=== PATIENT | male | born 1955 | race Caucasian/White ===

== ENCOUNTER 2019-05-13 16:52 | Inpatient (IN) ==
[2019-05-13] MEDS ORDERED: TESSALON PO ONE (17:51)
--- NOTE | 2019-05-13 17:59 | PROVIDER DOCUMENTATION ---
HPI-General Adult - General Chief Complaint: Cough Stated Complaint: COUGH / CONGESTION Time Seen by Provider: 05/13/19 17:13 Source: patient Allergies/Adverse Reactions: Patient Allergies Allergy/AdvReac Type Severity Reaction Status Date / Time Penicillins AdvReac HIVES Verified 05/13/19 17:03 Home Medications: Home Medication List Medication Instructions Recorded Confirmed Last Taken Type NK [No Home Medications] 05/13/19 05/13/19 Unknown History - History of Present Illness -Gen Adult Nature of Presenting Problems: Patient is a 63yo M who presents with complaints of intermittently productive/dry cough, nasal congestion, postnasal drip, and R ear pain x2 weeks. States he saw his PCP last week and was diagnosed with a Sinus Infection. Reports he completed a course of Azithromycin, steroids, and cough medication without improvement. States he has also been wheezing some at night. Denies fever, sore throat, n/v/d, CP, or SOB. Non-toxic in appearance. Location of Pain/Injury: reports: head, face Pain Radiation: reports: no radiation Quality of Pain: reports: aching Severity: reports: mild Onset/Duration: reports: other (2 weeks ago) Timing: reports: still present Context/Activities at Onset: reports: none Modifying Factors: improves with: nothing Associated Symptoms: reports: cough, EENT symptoms, sinus congestion/drainage. denies: back/neck pain, fever/chills, headaches, nausea, shortness of breath, weakness Similar Symptoms Previously?: Yes Recently seen or treated by another doctor?: Yes (saw PCP 1 week ago) Review of Systems - Adult - REVIEW OF SYSTEMS - ADULT Constitutional: reports: no symptoms reported. denies: chills, fever Eyes: reports: no symptoms reported Ears, Nose, Mouth & Throat: reports: see HPI, ear pain, sinus problem. denies: throat pain Cardiovascular: reports: no symptoms reported. denies: chest pain, palpitations Respiratory: reports: see HPI, cough, wheezing. denies: dyspnea on exertion, shortness of breath Gastrointestinal: reports: no symptoms reported. denies: abdominal pain, nausea, vomiting Genitourinary: reports: no symptoms reported Musculoskeletal: reports: no symptoms reported Integumentary: reports: no symptoms reported Neurological: reports: no symptoms reported Psychiatric: reports: no symptoms reported Endocrine: reports: no symptoms reported Past History - Adult - PAST MEDICAL HISTORY-ADULT Review of Records: reports: Nursing Assessment Review, Medications Reviewed - IMMUNIZATION STATUS Childhood Immunizations: See Nurse Assessment Flu Vaccine: See Nurse Assessment - FAMILY HISTORY Family History: reviewed, not pertinent - SOCIAL HISTORY Smoking: quit greater than 1 year Physical Exam-General - PHYSICAL EXAM-ADULT Initial Vital Signs Reviewed: Yes - CONSTITUTIONAL General Appearance: appears well, alert, no apparent distress. negative: lethargic, slow to respond, obtunded - EYES Eyes: PERRL/EOMI, pink conjunctivae. negative: EOM palsy, scleral icterus - HEAD, EARS, NOSE, MOUTH & THROAT HENMT: normocephalic/atraumatic, moist mucous membranes, pharynx normal, other (cerumen R ear canal; nasal congestion) - NECK Neck: full range of motion, supple, normal inspection - RESPIRATORY Respiratory: chest non-tender, lungs clear, normal breath sounds, no pleuratic chest pain, no respiratory distress, no accessory muscle use. negative: crackles, rales, rhonchi, stridor, wheezing, retractions, splinting - CARDIOVASCULAR Cardiovascular: regular rate, rhythm - MUSCULOSKELETAL Back Exam: normal inspection Extremity: normal range of motion, normal gait, normal inspection - SKIN Integumentary: normal color, warm/dry. negative: cyanosis, jaundice, pallor - NEUROLOGIC Neurologic: grossly normal. negative: abnormal gait, aphasia, EOM palsy - PSYCHIATRIC Psych/Mental Status: normal mood/affect, normal thought content, normal thought process, oriented x 3 Progress - PLAN OF CARE/RESULTS Progress/Plan/Lab Results: Vital Signs - 8 hr 05/13/19 16:58 Temperature 98 F Pulse Rate 99 H Respiratory Rate 18 Blood Pressure 128/80 O2 Sat by Pulse Oximetry 94 L Orders Category Date Time Status CHEST-2 VIEWS [RAD] Stat Exams 05/13/19 17:05 Taken BASIC METABOLIC PANEL [CHEM] Stat Lab 05/13/19 17:33 Ordered CBC WITH ELECTRONIC DIFF [HEME] Stat Lab 05/13/19 17:[address] Stat Lab 05/13/19 17:33 Ordered Benzonatate [Tessalon] Med 05/13/19 17:51 Discontinued 100 mg PO NOW ONE 1840: Ludy from lab reports critical blood glucose of 502. Patient notified and reports no known hx of DM or family hx. Will order workup for DKA. Lab results, imaging results, plan of care, and need for admission discussed with patient who agrees with and verbalizes understanding. Result Diagrams: 05/13/19 17:41 05/13/19 17:41 - REASSESSMENT Reassessment #1 Time Reassessed: 17:30 Status: improving Reassessment #2 Time Reassessed: 19:01 Status: improving Reassessment Comment: BG decreased to 354 Reassessment #3 Time Reassessed: 20:00 Status: improving Reassessment Comment: BG decreased to 275 - XRAY 1 XRAY: Bilateral XRAY Study: Chest Impression: See EMR Report ([facility] - [address] [facility], [address] [address] [facility] - [address] [place] [address] Department of Imaging Patient: KATHARINA MCGRATH AADM Date: 05/13/19MR#: [id number] : 1955DM Status: REG [facility]#: [id number] Age/Sex: 63/MRoom/Bed: Loc: .ED Ordering Physician: Alejo Jackson MD Family Physician: Isaiah Cespedes MD Reason for Procedure: cough wheezing x 2 weeks ___ Signed EXAM: CHEST-2 VIEWS INDICATION: cough wheezing x 2 weeks TECHNIQUE: 2 views COMPARISON: None. FINDINGS: The lungs are grossly clear. There is no discrete pleural fluid collection or pneumothorax. The cardiomediastinal silhouette and central vasculature are grossly unremarkable. IMPRESSION: No evidence of acute pathology by plain radiograph. Electronically signed by Rodolfo Crawley 05/13/2019 7:01 PM 05/13/191900 Interpreting Physician: Rodolfo Crawley MD Dictated Date/Time: 05/13/191900 cc: Alejo Jackson MD; Isaiah Cespedes MD) - CONSULTS/PCP/HOSPITALIST Notification #1 *Consult/PCP/Hospitalist*: Farideh Galvez Time Discussed: 20:54 Reason/Comments: New onset DM; Influenza; wheezing Consult Disposition: Admit Departure - Departure Date of Disposition Decision: 05/13/19 Time of Disposition Decision: 20:54 DIAGNOSIS: Elevated blood sugar, Diabetes mellitus, new onset, Influenza A, Wheezing Disposition: ADMITTED INPATIENT 09 Certified Medical Emergency: Emergent Condition: Stable - Critical Care Note This patient required my direct & personal management of CC.: No Attestation - Physician/ ROBERT Attestation Patient care was provided by Advanced Practice Provider:: Yes Advanced Practice Provider:: Delia Winkler Advanced Practice Provider documentation review:: The Mid-level provider documentation, treatment plan and medical decision making was reviewed by the physician who agrees with all treatment and medical decision making by the MLP. The physician spent face to face time with patient:: No Advanced Practice Provider documentation review:: Supervising physician onsite and consulted in the evaluation and care of this patient. The physician did not have a face to face encounter with the patient.
[2019-05-13 18:24] LABS: BASO# 0.02 X1000 (0.0-0.2); BASO% 0.4 % (0.0-0.8); EOS# 0.02 X1000 (0.0-0.7); EOS% 0.4 % (0.0-10.0); HEMATOCRIT 47.7 % (42.0-52.0); HEMOGLOBIN 15.6 g/dL (14.0-18.0); IMM GRAN# 0.01 X1000 (0.0-0.04); IMM GRAN% 0.2 % (0.0-0.5); LYMPH# 2.08 X1000 (1.2-3.4); LYMPH% 45.6 % (20.5-51.1); MCHC 32.7 g/dL (33-37); MCV 91.7 FL (81-99); MONO# 0.57 X1000 (0.11-0.59); MONO% 12.5 % (1.7-9.3); MPV 10.7 FL (7.4-10.4); NEUT# 1.86 X1000 (1.4-6.5); NEUT% 40.9 % (42.2-75.2); PLT 186 X1000 (130-400); RDW 12.1 % (11.5-14.5); WBC 4.56 X1000 (4.8-10.8)
[2019-05-13 18:28] LABS: ESTIMATED GFR > 60
[2019-05-13 18:34] LABS: AGAP 16; BUN 14 mg/dL (8-22); CALCIUM 10.1 mg/dL (8.8-10.2); CHLORIDE 96 mmol/L (98-107); COSMO 291; CREATININE 0.9 mg/dL (0.7-1.2); SODIUM 134 mmol/L (136-145); TCO2 22 mmol/L (25-35)
[2019-05-13 18:35] LABS: GLUCOSE 502 mg/dL (70-104)
[2019-05-13] MEDS ORDERED: NS 1,000 ML IV ONE ×2 (18:46→20:59)
[2019-05-13] MEDS ORDERED: HUMULIN R (PARKWAY) SUBQ ONE ×3 (18:47→21:02)
[2019-05-13 18:50] LABS: INFLUENZA A POSITIVE (NEGATIVE); INFLUENZA B NEGATIVE (NEGATIVE)
[2019-05-13] MEDS ORDERED: HUMULIN R (PARKWAY) ONE (19:03)
--- NOTE | 2019-05-13 19:03 | Diag Imaging Result Doc PS360 ---
EXAM: CHEST-2 VIEWS INDICATION: cough wheezing x 2 weeks TECHNIQUE: 2 views COMPARISON: None. FINDINGS: The lungs are grossly clear. There is no discrete pleural fluid collection or pneumothorax. The cardiomediastinal silhouette and central vasculature are grossly unremarkable. IMPRESSION: No evidence of acute pathology by plain radiograph. Electronically signed by Rodolfo Crawley 05/13/2019 7:01 PM
[2019-05-13 19:10] LABS: BE 1.9 mmoll (-3.0-3.0); BLOOD TYPE ARTERIAL; HCO3-(ACT) 26.2 mmoll (20.0-26.0); METHB 1.2 % (0.0-1.5); O2(CT) 21.6 mL/dL (15.0-23.0); O2HB 91.3 % (95.0-99.0); PCO2(98.6) 37 mmHg (35-45); PO2(98.6) 61 mmHg (60-100); SAMPLE BLOOD; SAO2 94.5 % (95.0-100.0); THB 16.9 g/dL (11.5-17.4); pH(98.6) 7.45 (7.35-7.45)
[2019-05-13 19:12] LABS: ALLEN TEST NO; MODALITY ROOM AIR
[2019-05-13 19:35] LABS: HEMOGLOBIN A1C 11.2 % (4.8-6.0)
[2019-05-13] MEDS ORDERED: MUCINEX DM PO ONE (20:47)
[2019-05-13] MEDS ORDERED: DUONEB (A & A) INH ONE (20:47)
[2019-05-13] MEDS ORDERED: TAMIFLU PO ONE (20:47)
[2019-05-13 21:09] LABS: URINE SOURCE CLEAN CATCH
[2019-05-13 21:10] LABS: BILIRUBIN URINE NEGATIVE (NEGATIVE); BLOOD URINE NEGATIVE (NEGATIVE); COLOR YELLOW; GLUCOSE URINE >1000 mg/dL (NEGATIVE); KETONE URINE NEGATIVE (NEGATIVE); LEUKOCYTES URINE NEGATIVE (NEGATIVE); NITRITE URINE NEGATIVE (NEGATIVE); PROTEIN URINE NEGATIVE (NEGATIVE); SP GRAVITY URINE 1.037; TURBIDITY URINE CLEAR (CLEAR); UROBILINOGEN URINE NORMAL (NORMAL)
[2019-05-13 21:12] LABS: UR EPITHELIAL CELLS <10 /HPF (<10); URINE BACTERIA NEGATIVE /HPF; URINE RBC <10 /HPF (<10); URINE WBC <10 /HPF (<10)
[2019-05-13] MEDS ORDERED: LEVAQUIN 750 MG in NS 150 ML IV SCH (21:15)
[2019-05-14] MEDS: DUONEB (A & A) INH SCH ×5 (00:03→14:37)
[2019-05-14] MEDS ORDERED: LEVAQUIN 750 MG/D5W 750 MG/150 ML IVPB IV ONE (01:44)
[2019-05-14 06:25] LABS: AGAP 13; BUN 12 mg/dL (8-22); CHLORIDE 103 mmol/L (98-107); COSMO 285; CREATININE 0.8 mg/dL (0.7-1.2); ESTIMATED GFR > 60; GLUCOSE 208 mg/dL (70-104); POTASSIUM 3.8 mmol/L (3.5-5.1); SODIUM 140 mmol/L (136-145); TCO2 23 mmol/L (25-35)
[2019-05-14] MEDS ORDERED: GLUCOPHAGE PO SCH (09:00)
[2019-05-14] MEDS ORDERED: TAMIFLU PO SCH (09:00)
--- NOTE | 2019-05-14 14:49 | DISCHARGE SUMMARY ---
ADMISSION DATE: 05/13/2019 DISCHARGE DATE: ADMISSION DIAGNOSES: 1. New onset diabetes. 2. Influenza A positive. DISCHARGE DIAGNOSES: 1. New onset diabetes. 2. Influenza A positive. SUMMARY OF FINDINGS: This is a 63-year-old male who presented to [facility] ER with complaints of an intermittent dry cough with a postnasal drip, congestion and right ear pain for 2 weeks but he saw his primary care physician last week and was diagnosed with a sinus infection took a course of azithromycin, steroids and cough medication without much improvement, tested positive for influenza A, was also found to have an elevated blood sugar of 502 on arrival with a hemoglobin A1c of 11.2 so he currently has new onset diabetes type 2, was placed on pattern blood sugars with sliding scale insulin, placed on Tamiflu. Blood sugars have come down today to 208 and is feeling a little bit better today and it is felt that he can safely be discharged home. DISCHARGE MEDICATIONS: Will include a prescription for metformin 500 mg p.o. b.i.d. #60 with 1 refill and Tamiflu 75 mg p.o. b.i.d. #8 with no refills. FOLLOWUP: He will follow with his primary care physician in 1 to 2 weeks and call his office for an appointment. All discharge instructions have been reviewed and he verbalized understanding. TIME SPENT: 35 minutes. Dictated by KLAUS Marlow for Seven Green MD cc: MD Seven Plummer MD
[2019-05-14 16:09] VITALS: BP 124/78
--- NOTE | 2019-05-14 20:18 | HISTORY AND PHYSICAL ---
ADDENDUM: Patient seen and examined by myself. Full note dictated and discussed with nurse practitioner. The patient presented to the hospital with increased cough and congestion for the past 2 weeks, increased shortness of breath. We are going to admit him to the hospital, treat him for influenza, his wheezing, follow his blood sugars. Further orders as needed. cc: Seven Green MD
[2019-05-15] MEDS ORDERED: LEVAQUIN 750 MG in NS 150 ML IV SCH (03:00)
--- NOTE | 2019-05-20 07:06 | HISTORY AND PHYSICAL ---
CHIEF COMPLAINT: Cough and congestion. HISTORY OF PRESENT ILLNESS: The patient is a 63-year-old male who presented to the hospital with cough, congestion, shortness of breath, nasal drainage and right ear pain. He states he was recently put on azithromycin and steroids, with very little improvement. He has been having some wheezing. Denies any true chest pain or shortness of breath. Denies any true shortness of breath but does have dyspnea with exertion. ALLERGIES: Penicillin. MEDICATIONS: No current active medications. REVIEW OF SYSTEMS: As noted above. Positive cough, congestion, increased work of breathing, low- grade fevers. Denies chills. Denies headaches, blurred vision, change in vision. Denies any focalized numbness, tingling or weakness in his extremities. Denies dysuria, frequency, urgency, constipation, melena, hematochezia. PAST MEDICAL HISTORY: No chronic active medical problems. FAMILY HISTORY: Noncontributory. SOCIAL HISTORY: Stopped smoking greater than a year ago. Denies any alcohol use. PHYSICAL EXAMINATION: VITAL SIGNS: Reviewed. Temperature 98 degrees, pulse 99, respiratory rate 18, BP 128/80. GENERAL: The patient is awake, alert, pleasant, in no current respiratory distress. HEENT: Normocephalic. NECK: Supple. CARDIOVASCULAR: Regular rate. CHEST: Clear, nonlabored, no wheezing. ABDOMEN: Soft. Nondistended. EXTREMITIES: Moves all extremities. No edema. NEUROLOGIC: No focal changes. He is awake, alert, and oriented. LABS: CBC normal. CMP with a glucose at 502. ASSESSMENT: 1. Influenza type A positive. 2. New-onset diabetes. PLAN: We are going to admit the patient to the hospital, IV fluids, Tamiflu, and will follow. cc: Seven Green MD
== END 2019-05-14 16:28 | disposition home or self-care (01) | DRG 639 ==
LOC: P.ED 16:52 → SUATTDRO 22:07 → P.MEDSURG 22:07
PROVIDERS: ATTEND Family Medicine